=== PATIENT | male | born 1995 | race Caucasian/White ===

== ENCOUNTER 2021-02-24 09:12 | Outpatient (REF) | payer OTHER, SELFPAY ==
[2021-02-24 10:30] LABS: MANUAL DIFF FLAG NO
[2021-02-24 10:35] LABS: Basophils Percent Auto 0.4 % (0-2); Eosinophils Absolute Auto 0.1 X10*3/uL (0.0-0.4); Eosinophils Percent Auto 2.6 % (0-4); Hematocrit 41.4 % (42-52); Imm Gran Abs Auto 0.01 X10*3/uL (0.00-0.03); Imm Gran Pct Auto 0.2 % (0.0-0.4); Lymphocytes Absolute Auto 1.5 X10*3/uL (1.2-4.9); Lymphocytes Percent Auto 30.4 % (20-40); Mean Corpuscular HGB Conc 33.8 g/dl (31.0-36.0); Mean Corpuscular Hemoglobin 30.8 pg (27.0-33.0); Mean Corpuscular Volume 91.2 fL (80-98); Mean Platelet Volume 9.2 fL (9.4-12.4); Monocytes Absolute Auto 0.5 X10*3/uL (0.1-1.2); Monocytes Percent Auto 9.9 % (2-11); Neutrophils Absolute Auto 2.8 X10*3/uL (2.0-8.3); Neutrophils Percent Auto 56.5 % (45-73); Platelet Count 257 X10*3/uL (160-400); Red Blood Count 4.54 X10*6/uL (4.60-5.80); Red Cell Distribution Width 11.6 % (11.0-16.0); White Blood Count 4.9 X10*3/uL (4.8-10.8)
[2021-02-24 11:18] LABS: Erythrocyte Sedimentation Rate 5 MM/HR (0-15)
[2021-02-24 11:36] LABS: Alanine Aminotransferase 40 U/L (0-40); Albumin Level 4.4 g/dL (3.5-5.0); Alkaline Phosphatase 66 U/L (39-117); Anion Gap 11 (12-20); Aspartate Amino Transferase 28 U/L (5-37); Bilirubin Total 1.1 mg/dL (0.0-1.0); Blood Urea Nitrogen 13 mg/dL (9-16); Calcium 9.9 mg/dL (8.4-10.2); Carbon Dioxide 28 mmol/L (22-29); Chloride 104 mmol/L (96-108); Cholesterol 170 mg/dL; Estimated Glomerular Filt Rate > 60; Glucose Fasting 97 mg/dL (60-99); HDL Cholesterol 40 mg/dL; LDL Cholesterol Calculated 113 mg/dl; Potassium 4.3 mmol/L (3.3-5.1); Sodium 139 mmol/L (135-145); Total Protein 7.3 g/dL (6.5-8.0); Triglycerides 85 mg/dL
[2021-02-24 11:55] LABS: TSH reflex Free T4 1.04 uIU/mL (0.32-4.0)
[2021-02-24 13:06] LABS: Rheumatoid Factor < 15.0 IU/mL (<15.0)
[2021-02-26 20:37] LABS: CRP High Sensitivity 2.9 mg/L
== END 2021-02-24 09:13 | disposition home or self-care (01) ==
LOC: HO.WFDLDS 09:12
PROVIDERS: Visit Provider Family Medicine
DX: Z00.00 Encounter for general adult medical examination without abnormal findings (principal); M25.50 Pain in unspecified joint
CPT/HCPCS: 36415; 80053; 80061; 84443; 85025; 85652; 86141; 86431

== ENCOUNTER 2022-03-08 09:43 | Outpatient (REF) | payer OTHER, SELFPAY ==
[2022-03-08 11:16] LABS: MANUAL DIFF FLAG NO
[2022-03-08 11:25] LABS: Basophils Percent Auto 0.7 % (0-2); Eosinophils Absolute Auto 0.1 X10*3/uL (0.0-0.4); Eosinophils Percent Auto 1.9 % (0-4); Hematocrit 42.4 % (42.0-52.0); Hemoglobin 14.3 g/dl (14.0-18.0); Imm Gran Abs Auto 0.02 X10*3/uL (0.00-0.03); Imm Gran Pct Auto 0.3 % (0.0-0.4); Lymphocytes Absolute Auto 1.5 X10*3/uL (1.2-4.9); Lymphocytes Percent Auto 25.8 % (20-40); Mean Corpuscular HGB Conc 33.7 g/dl (31.0-36.0); Mean Corpuscular Hemoglobin 30.8 pg (27.0-33.0); Mean Corpuscular Volume 91.2 fL (80.0-98.0); Mean Platelet Volume 9.5 fL (9.4-12.4); Monocytes Absolute Auto 0.4 X10*3/uL (0.1-1.2); Monocytes Percent Auto 7.2 % (2-11); Neutrophils Absolute Auto 3.8 x10*3/uL (2.0-8.3); Neutrophils Percent Auto 64.1 % (45-73); Platelet Count 282 X10*3/uL (160-400); Red Blood Count 4.65 X10*6/uL (4.60-5.80); Red Cell Distribution Width 11.8 % (11.0-16.0); White Blood Count 5.9 X10*3/uL (4.8-10.8)
[2022-03-08 12:19] LABS: Alanine Aminotransferase 36 U/L (0-40); Albumin Level 4.4 g/dL (3.5-5.0); Alkaline Phosphatase 69 U/L (39-117); Anion Gap 13 (12-20); Aspartate Amino Transferase 22 U/L (5-37); Bilirubin Total 1.2 mg/dL (0.0-1.0); Blood Urea Nitrogen 11 mg/dL (9-16); Calcium 9.6 mg/dL (8.4-10.2); Carbon Dioxide 29 mmol/L (22-29); Chloride 103 mmol/L (96-108); Cholesterol 164 mg/dL; Estimated Glomerular Filt Rate > 60; Glucose Fasting 94 mg/dL (60-99); HDL Cholesterol 35 mg/dL; LDL Cholesterol Calculated 118 mg/dl; Potassium 4.4 mmol/L (3.3-5.1); Sodium 141 mmol/L (135-145); Total Protein 7.3 g/dL (6.5-8.0); Triglycerides 55 mg/dL
[2022-03-08 12:46] LABS: TSH reflex Free T4 0.75 uIU/mL (0.32-4.0)
== END 2022-03-08 09:44 | disposition home or self-care (01) ==
LOC: HO.WFDLDS 09:43
PROVIDERS: Visit Provider Family Medicine
DX: Z00.00 Encounter for general adult medical examination without abnormal findings (principal)
CPT/HCPCS: 36415; 80053; 80061; 84443; 85025

== ENCOUNTER 2025-05-08 15:35 | Outpatient (AMB) | payer OTHER, SELFPAY ==
--- NOTE | 2025-05-08 15:40 | A.OFFPC_ITS ---
Vital Signs 05/08/25 15:42 Height 5 ft 11 in Weight 205 lb BMI 28.6 BP 128/74 Blood Pressure Location Rt brachial Position Sitting Respiration 16 Pulse 110 H Pulse Source Pulse Oximeter Temp 98.3 F Temp Source Oral Pulse Oximetry (%) 98 Oxygen Delivery Method Room Air Intake Visit Reasons: Anxiety Intake Note: patient is scheduled to follow up for anxiety and gi issues abd cramping and stools are yellow Machine Adjuster Helper Required: No Allergies Seasonal Allergies Allergy (Verified 05/08/25 15:41) itchy eyes, headaches, congestion Medication List - Last Reconciled 05/08/25 by Danny Robles MD fexofenadine (Belle Allergy) 60 mg PO BID Tobacco use date assessed: 03/08/22 HPI Anxiety HPI Details 30 y/o male presents today with complain ts of anxiety. Also has complaints of diarrhea with almost every stool. Denies much gas. Reports abd. pain and cramping. Pt notes this also alternates with harder stools/constipation. PHQ-9 5, JONES-7 3 today. PFSH Family History (Updated 03/01/21 @ 10:08 by [facility]) Father Hypertension Mother Fibromyalgia Social History (Updated 03/01/21 @ 10:08 by [facility] [facility]) Housing: House Alcohol intake: former Patient Tobacco Use Status: Never used Tobacco e-Cigarette/Vaping Use: Never Used Second Hand Smoke Exposure: No service: No Current occupational status: employed Current occupational exposures/hazards: No Cognitive needs: No Hearing needs: No Vision needs: No Questionnaire PHQ-9 Over the last 2 weeks, how often have you been bothered by any of the following problems? 1. Little interest or pleasure in doing things: several days 2. Feeling down, depressed, or hopeless: several days 3. Trouble falling or staying asleep, or sleeping too much: several days 4. Feeling tired or having little energy: several days 5. Poor appetite or overeating: several days 6. Feeling bad about yourself - or that you are a failure or have let yourself or your family down: not at all 7. Trouble concentrating on things, such as reading the newspaper or watching television: not at all 8. Moving or speaking so slowly that other people could have noticed. Or the opposite - being so fidgety or restless that you have been moving around a lot more than usual: not at all 9. Thoughts that you would be better off or of hurting yourself in some way: not at all Total score: 5 Depression Screening Interpretation: Negative Depression Screening Done: Yes 62882 - PHQ-9 Billing: Yes Source: Developed by Drs. Anjum Marshall, Katelynn Martinez, Jone Hsieh and colleagues, with an educational popeye from [employer]. Thrive Questionnaire Date Thrive assessed: 05/02/25 I am a: Patient What is your living situation today?: I have a steady place to live Within the past 12 months, did the food you bought not last and you didn't have the money to get more?: Never true Within the past 12 months, did you worry whether your food would run out before you got money to buy more?: Never true Do you have trouble paying for medicines?: No Do you have trouble getting transportation to medical appointments?: No Do you have trouble paying your heating and electricity bill?: No Do you have trouble taking care of your child, family member or friend?: No Do you have trouble with day-to-day activities such as bathing, preparing meals, shopping, managing finances, etc.?: No Are you currently unemployed and looking for a job?: No Are you interested in more education?: No Please select the resources that you would like help with: None Currently or been in a relationship where the following occur: No concerns reported THRIVE Score: 0 AUDIT C Alcohol Use Questionnaire (AUDIT-C) 1. How often do you have a drink containing alcohol?: Never 2. How many drinks containing alcohol do you have on a typical day when you are drinking?: 1 or 2 3. How often do you have six or more drinks on one occasion?: Never Total Score: 0 JONES-7 AMB Questionnaire JONES-7 Date JONES - 7 assessed: 05/08/25 Feeling nervous, anxious, or on edge: 1 = Several days Not being able to stop or control worryin = Not at all Worrying too much about different things: 0 = Not at all Trouble relaxin = Several days Being so restless that it is hard to sit still: 0 = Not at all Becoming easily annoyed or irritable: 1 = Several days Feeling afraid as if something awful might happen: 0 = Not at all Total JONES-7 score (0-4 normal; 5-9 mild; 10-14 moderate; 15-21 severe): 3 Source: Developed by Drs. Anjum Marshall, Katelynn Martinez, Jone Hsieh and colleagues, with an educational popeye from [employer]. JONES-7 Assessment Billing JONES-7 Assessment Tool: JONES-7 Assessment 16683 Review of Systems Const Denies chills, Denies fatigue, Denies fever(s), Denies headache(s) and Denies weakness ENT Denies dizziness and Denies headache(s) Card Denies dyspnea Resp Denies cough, Denies dyspnea, Denies wheezing and Denies other (shortness of breath) Musc Denies numbness and Denies tingling Neuro Denies dizziness, Denies headache(s), Denies numbness, Denies tingling and Denies weakness Psych Denies anxiety and Denies depression Endo Denies fatigue Aller/Immun Denies wheezing Physical exam (Primary Care) Vital Signs: Last Vital Signs Temp 98.3 F 05/08/25 15:42 Pulse 110 H 05/08/25 15:42 Resp 16 05/08/25 15:42 BP 128/74 05/08/25 15:42 Pulse Ox 98 05/08/25 15:42 Oxygen Delivery Method Room Air 05/08/25 15:42 BMI result Body Mass Index 28.6 Tobacco/Smoking Status: Tobacco use Status Tobacco use date assessed 03/08/22 05/08/25 15:44 Patient Tobacco Use Status Never used Tobacco 05/08/25 15:44 e-Cigarette/Vaping Use Never Used 05/08/25 15:44 PHQ-9: PHQ-9 Score PHQ-9: Total score 5 05/08/25 15:44 Depression Screening Interpretation: Negative Thrive Assessment: Date of Thrive Assessment Date Thrive assessed 05/02/25 05/08/25 15:44 Currently or been in a relationship where the following occur: No concerns reported Const General: well developed; No acute distress Nutritional Appearance: well nourished Orientation/consciousness: patient oriented x3 HENMT Head: Yes normocephalic and Yes atraumatic Eyes General: appearance normal, both eyes and all related structures Pupils: Equal, round and reactive pupils present EOM: EOMs intact bilaterally Resp Effort & Inspection: normal respiratory effort Neuro General: patient oriented x3 and gait normal Cranial nerves: Yes Equal, round and reactive pupils present Psych Affect: normal affect Coding Level of Care Code Est Pt Level 4 (88972) Diagnoses IBS (irritable bowel syndrome) K58.9 Anxiety F41.9 Additional Codes JONES-7 Assessment Billing - JONES-7 Assessment Tool: JONES-7 Assessment 84521 ([id number]) PHQ-9 - 41764 - PHQ-9 Billing: Yes ([id number]) Assessment & Plan Assessment & Plan (1) IBS (irritable bowel syndrome): Code(s): K58.9 - Irritable bowel syndrome, unspecified Category: Medical Plan: Increase Hydration Soluble fiber tab Check stool studies Patient has had ongoing symptoms since previous visits in 2021 in 2020. will refer to GI (2) Anxiety: Code(s): F41.9 - Anxiety disorder, unspecified Category: Medical Plan: Ongoing anxiety He has tried a therapist in the past but would prefer to try medication Start sertraline 50 mg daily Orders: Orders Comprehensive [place]. Panel Fast Today Z00.00 - Encounter for general adult medical examination without abnormal findings Complete Blood Count Auto Diff Today Z00.00 - Encounter for general adult medical examination without abnormal findings Lipid Panel Today Z00.00 - Encounter for general adult medical examination without abnormal findings TSH reflex Free T4 Today Z00.00 - Encounter for general adult medical examination without abnormal findings GI Panel Today R19.5 - Other fecal abnormalities Microalbumin, Random (w Creat) Today I10 - Essential (primary) hypertension UA CC w/rflx Micro + Cult Today Z00.00 - Encounter for general adult medical examination without abnormal findings
[2025-05-08 15:42] VITALS: BP 128/74; PULSE 110; RESP 16; TEMP 36.8; O2SAT 98; BMI 28.6
--- OUTSIDE RECORDS SUMMARY | 2025-05-08 19:13 | XMS_ITS | Clinical Summary ---
Author Organization [facility] Address [address] [place] [phone] Phone Care Team Providers Care Scale Shooter Name Role Phone Unavailable Primary Care Provider Unavailabl e Immunizations Immunization Administration Dates Next Due DTaP 05/08/2001, 8,1996,08/19,1996 Hep B, ped/adol 02/28/1997,1996,1996 Hib (PRP-T) 07/25/1997,199 7,1996,06/27 IPV 05/08/2001,199 7,1996,06/27 Influenza, injectable, quadrivalent 05/30/2012,1 08/08/2010,06/04/2010 Influenza, injectable, quadr ivalent, preservative free 05/31/2013 MMR 04/25/2000,05/02/1997 Meningococcal Conj (Menactra) MCV4P 05/30/2012,1 Tdap 05/15/2007 Varicella 05/15/2007,12/25/1997 Family History Relation Name Status Comments Father Alive healthy, hyperl ipidemia age: 50 Father's Sister Alive One sister d ied of ovarian ca Maternal Grandfather 73 stok [address] Maternal Grandmother 49 [employer] Cancer Mother Alive healthy age: 49 Paternal Grandfather Alive DM, hyp ertension, hyperlipidemia age: 76 Paternal Grandmother Alive hyperte nsion age: 71 Social History Tobacco Use Types Packs/Day Years Used Date Smoking Tobacco: Never Assessed Sex and Gender Information Value Date Recorded Sex Assigned at Not on file Legal Sex Male 6:23 PM EDT Gender Identity Not on file Sexual Orientation Not on file Last Filed Vital Signs Vital Sign Reading Time Taken Comments Blood Pressure 118/70 05/31/2013 12:00 AM EST Pulse - - Temperature 37 C (98.6 F) 04/02/2012 12:00 AM EDT Respiratory Rate - - Oxygen Saturation - - Inhaled Oxygen Concentration - - Weight 80.3 kg (177 lb) 05/31/2013 12:00 AM EST Height 174 cm (5' 8.5 ) 05/31/2013 12:00 AM EST Body Mass Index 26.52 05/31/2013 12:00 AM EST Plan of Treatment Health Maintenance Due Date Last Done Comments DTaP,Tdap,and Td Vaccines (7 - Td or Tdap) 05/15/2017 05/15/2007, 05/08/2001, 07/25/1997, Additional history exists HPV Vaccines (1 - 3-dose SCDM series) 2023 Influenza Vaccines (#1) 2025 05/31/20 13, 05/30/2012, 06/08/2011, Additional history exists COVID-19 Vaccine ( season) 2025 Hepatitis B Vaccines Completed 02/28/1997, 1996, 1996 HIB Vaccines Completed 07/25/1997, 02/1997, 1996, Additional history exists MMR Vaccines Completed 04/25/2000, 05/02/1997 IPV Vaccines Completed 05/08/2001, 02/1997, 1996, Additional history exists Varicella Vaccines Completed 05/15/2007, 12/25/1997 Meningococcal Vaccine Completed 05/30/2012, 007 Hepatitis A Vaccines Aged Out No long er eligible based on patient's age to complete this topic Men B Vaccine Aged Out No longer elig ible based on patient's age to complete this topic Pneumococcal Vaccine Aged Out No long er eligible based on patient's age to complete this topic
--- OUTSIDE RECORDS SUMMARY | 2025-05-08 19:13 | XMS_ITS | Encounter Summary ---
Author Organization [facility] Address [address] [place] [phone] Phone Care Team Providers Care Hot Dip Plating Supervisor Name Role Phone Unavailable Primary Care Provider Unavailabl e Encounter Details Date Type Department Care Team (Late st Contact Info) Description 12/03/2017 Con[facility]counter [facility] [address] [address] Social History Tobacco Use Types Packs/Day Years Used Date Smoking Tobacco: Never Assessed Sex and Gender Information Value Date Recorded Sex Assigned at Not on file Legal Sex Male 6:23 PM EDT Gender Identity Not on file Sexual Orientation Not on file documented as of this encounter Plan of Treatment Not on file documented as of this encounter Visit Diagnoses Not on filedocumented in this encounter
== END 2025-05-08 16:07 | disposition home or self-care (01) ==
LOC: HO.HMCFM 15:36
PROVIDERS: PCP Family Medicine; Visit Provider Family Medicine
DX: K58.9 Irritable bowel syndrome, unspecified (principal); F41.9 Anxiety disorder, unspecified

== ENCOUNTER → 2025-05-08 15:35 | Outpatient (BNVA) | payer OTHER, SELFPAY | PROVIDERS: PCP Family Medicine; Visit Provider Family Medicine | DX: K58.0 Irritable bowel syndrome with diarrhea (principal); F41.9 Anxiety disorder, unspecified; I10 Essential (primary) hypertension | CPT/HCPCS: 96127; 99212 ==

== ENCOUNTER 2025-05-16 10:56 | Outpatient (REF) | payer OTHER, SELFPAY ==
--- OUTSIDE RECORDS SUMMARY | 2025-05-16 12:27 | XMS_ITS | Encounter Summary ---
Author Organization [facility] Address [address] [place] [phone] Phone Care Team Providers Care Vp Respiratory Name Role Phone Unavailable Primary Care Provider Unavailabl e Encounter Details Date Type Department Care Team (Late st Contact Info) Description 12/03/2017 Con[facility]counter [facility] [address] [address] Social History Tobacco Use Types Packs/Day Years [...]
--- OUTSIDE RECORDS SUMMARY | 2025-05-16 12:27 | XMS_ITS | Clinical Summary ---
Author Organization [facility] Address [address] [place] [phone] Phone Care Team Providers Care Quarter Supervisor Name Role Phone Unavailable Primary Care [...] Grandfather 73 stok e Maternal Grandmother 49 [place] n Cancer Mother Alive healthy age: 49 [...]
[2025-05-16 14:06] LABS: MANUAL DIFF FLAG NO
[2025-05-16 14:09] LABS: Appearance Urine Clear; Glucose Urine UA Negative (Negative); PH 7.5 (5.0-9.0); Specific Gravity - Urine 1.010 (1.005-1.025)
[2025-05-16 14:18] LABS: Hematocrit 43.1 % (42.0-52.0); Hemoglobin 14.2 g/dl (14.0-18.0); Imm Gran Abs Auto 0.02 X10*3/uL (0.00-0.03); Imm Gran Pct Auto 0.4 % (0.0-0.4); Lymphocytes Absolute Auto 1.3 X10*3/uL (1.2-4.9); Mean Corpuscular HGB Conc 32.9 g/dl (31.0-36.0); Mean Corpuscular Hemoglobin 30.1 pg (27.0-33.0); Mean Corpuscular Volume 91.3 fL (80.0-98.0); NRBC Abs Auto 0.000 X10*3/uL (0.0-0.012); NRBC Pct Auto 0.0 /100WBC (0.0-0.2); Platelet Count 292 X10*3/uL (160-400); Red Blood Count 4.72 X10*6/uL (4.60-5.80); White Blood Count 5.2 X10*3/uL (4.8-10.8)
[2025-05-16 14:30] LABS: Alanine Aminotransferase 34 U/L (0-40); Albumin Level 4.7 g/dL (3.5-5.0); Alkaline Phosphatase 60 U/L (39-117); Anion Gap 10 (12-20); Aspartate Amino Transferase 31 U/L (5-37); Blood Urea Nitrogen 9 mg/dL (9-16); Calcium 9.8 mg/dL (8.4-10.2); Carbon Dioxide 29 mmol/L (22-29); Chloride 103 mmol/L (96-108); Cholesterol 125 mg/dL (<200); Estimated Glomerular Filt Rate > 60; HDL Cholesterol 37 mg/dL (>40); Potassium 3.7 mmol/L (3.3-5.1); Sodium 138 mmol/L (135-145); Total Protein 7.4 g/dL (6.5-8.0); Triglycerides 62 mg/dL (<150)
[2025-05-16 14:33] LABS: Microalbum/Creatinine Ratio Ur 6.8 ug/mg cr (<30)
== END 2025-05-16 10:57 | disposition home or self-care (01) ==
LOC: HO.WFDLDS 10:56
PROVIDERS: Visit Provider Family Medicine
DX: Z00.00 Encounter for general adult medical examination without abnormal findings (principal); I10 Essential (primary) hypertension
CPT/HCPCS: 36415; 80053; 80061; 81003; 82043; 82570; 84443; 85025

== ENCOUNTER 2025-06-10 15:07 | Outpatient (AMB) | payer OTHER, SELFPAY ==
--- NOTE | 2025-06-10 15:10 | MHC.PC.OV ---
Vital Signs 06/10/25 15:13 Height 51 ft 1 in Weight 209 lb 8 oz BMI 0.4 BP 140/83 H Blood Pressure Location Lt brachial Position Sitting Respiration 13 Pulse 96 Pulse Source Pulse Oximeter Temp 97.2 F Temp Source Temporal Artery Scan Pulse Oximetry (%) 99 Oxygen Delivery Method Room Air Intake Visit Reasons: f/u anxiety Intake Note: Follow up on anxiety and review labs Supervisor Laboratory Required: No Allergies Seasonal Allergies Allergy (Verified 06/10/25 15:10) itchy eyes, headaches, congestion Medication List - Last Reconciled 06/10/25 by Danny Robles MD calcium polycarbophil (FiberCon) 625 mg PO DAILY 30 days fexofenadine (Belle Allergy) 60 mg PO BID sertraline 50 mg PO DAILY 90 days Tobacco use date assessed: 06/10/25 Dental Screening Dental Screen Date: 06/10/25 Did you have a dental visit in the last 12 months?: Yes Did you have a dental problem in the last 6 months where you did not have access to dental care?: No Was dental information given to patient?: Patient has dentist HPI f/u anxiety HPI Details 30 y/o male presents to f/u anxiety. PHQ-9/JONES-7 negative today. He is on sertraline 50mg daily. Hx of IBS. Pt notes FiberCon has been working well for him. Labs drawn 05/16/25. Reviewed labs with pt. Triglycerides 62. TC 125. LDL 76. HDL low at 37. PFSH Family History (Updated 03/01/21 @ 10:08 by [employer]) Father Hypertension Mother Fibromyalgia Social History (Updated 03/01/21 @ 10:08 by [employer]) Housing: House Alcohol intake: former Patient Tobacco Use Status: Never used Tobacco e-Cigarette/Vaping Use: Never Used Second Hand Smoke Exposure: No service: No Current occupational status: employed Current occupational exposures/hazards: No Cognitive needs: No Hearing needs: No Vision needs: No Questionnaire PHQ-9 Over the last 2 weeks, how often have you been bothered by any of the following problems? 1. Little interest or pleasure in doing things: not at all 2. Feeling down, depressed, or hopeless: not at all 3. Trouble falling or staying asleep, or sleeping too much: not at all 4. Feeling tired or having little energy: not at all 5. Poor appetite or overeating: not at all 6. Feeling bad about yourself - or that you are a failure or have let yourself or your family down: not at all 7. Trouble concentrating on things, such as reading the newspaper or watching television: not at all 8. Moving or speaking so slowly that other people could have noticed. Or the opposite - being so fidgety or restless that you have been moving around a lot more than usual: not at all 9. Thoughts that you would be better off or of hurting yourself in some way: not at all Total score: 0 Depression Screening Interpretation: Negative Depression Screening Done: Yes 40227 - PHQ-9 Billing: Yes Source: Developed by Drs. Anjum Marshall, Katelynn Martinez, Jone Hsieh and colleagues, with an educational popeye from [employer]. Thrive Questionnaire Date Thrive assessed: 06/10/25 I am a: Patient What is your living situation today?: I have a steady place to live Within the past 12 months, did the food you bought not last and you didn't have the money to get more?: Never true Within the past 12 months, did you worry whether your food would run out before you got money to buy more?: Never true Do you have trouble paying for medicines?: No Do you have trouble getting transportation to medical appointments?: No Do you have trouble paying your heating and electricity bill?: No Do you have trouble taking care of your child, family member or friend?: No Do you have trouble with day-to-day activities such as bathing, preparing meals, shopping, managing finances, etc.?: No Are you currently unemployed and looking for a job?: No Are you interested in more education?: No Please select the resources that you would like help with: None Currently or been in a relationship where the following occur: No concerns reported THRIVE Score: 0 JONES-7 AMB Questionnaire JONES-7 Date JONES - 7 assessed: 06/10/25 Feeling nervous, anxious, or on edge: 0 = Not at all Not being able to stop or control worryin = Not at all Worrying too much about different things: 0 = Not at all Trouble relaxin = Not at all Being so restless that it is hard to sit still: 0 = Not at all Becoming easily annoyed or irritable: 0 = Not at all Feeling afraid as if something awful might happen: 0 = Not at all Total JONES-7 score (0-4 normal; 5-9 mild; 10-14 moderate; 15-21 severe): 0 Source: Developed by Drs. Anjum Marshall, Katelynn Martinez, Jone Hsieh and colleagues, with an educational popeye from [employer]. JONES-7 Assessment Billing JONES-7 Assessment Tool: JONES-7 Assessment 73638 Review of Systems Const Denies chills, Denies fatigue, Denies fever(s), Denies headache(s) and Denies weakness ENT Denies dizziness and Denies headache(s) Card Denies dyspnea Resp Denies cough, Denies dyspnea, Denies wheezing and Denies other (shortness of breath) Musc Denies numbness and Denies tingling Neuro Denies dizziness, Denies headache(s), Denies numbness, Denies tingling and Denies weakness Psych Denies anxiety and Denies depression Endo Denies fatigue Aller/Immun Denies wheezing Physical exam (Primary Care) Vital Signs: Last Vital Signs Temp 97.2 F 06/10/25 15:13 Pulse 96 06/10/25 15:13 Resp 13 06/10/25 15:13 BP 140/83 H 06/10/25 15:13 Pulse Ox 99 06/10/25 15:13 Oxygen Delivery Method Room Air 06/10/25 15:13 BMI result Body Mass Index 0.4 Tobacco/Smoking Status: Tobacco use Status Tobacco use date assessed 06/10/25 06/10/25 15:15 Patient Tobacco Use Status Never used Tobacco 06/10/25 15:15 e-Cigarette/Vaping Use Never Used 06/10/25 15:15 PHQ-9: PHQ-9 Score PHQ-9: Total score 0 06/10/25 15:42 Depression Screening Interpretation: Negative Thrive Assessment: Date of Thrive Assessment Date Thrive assessed 06/10/25 06/10/25 15:15 Currently or been in a relationship where the following occur: No concerns reported Const General: well developed; No acute distress Nutritional Appearance: well nourished Orientation/consciousness: patient oriented x3 HENMT Head: Yes normocephalic and Yes atraumatic Eyes General: appearance normal, both eyes and all related structures Pupils: Equal, round and reactive pupils present EOM: EOMs intact bilaterally Resp Effort & Inspection: normal respiratory effort Neuro General: patient oriented x3 and gait normal Cranial nerves: Yes Equal, round and reactive pupils present Psych Affect: normal affect Coding Level of Care Code Est Pt Level 3 (75083) Diagnoses Anxiety F41.9 IBS (irritable bowel syndrome) K58.9 Low HDL (under 40) E78.6 Additional Codes JONES-7 Assessment Billing - JONES-7 Assessment Tool: JONES-7 Assessment 52632 ([id number]) PHQ-9 - 34993 - PHQ-9 Billing: Yes ([id number]) Assessment & Plan Assessment & Plan (1) Anxiety: Code(s): F41.9 - Anxiety disorder, unspecified Category: Medical Plan: Significant improvements on sertraline 50 mg daily. He will increase this to 75 mg daily. He can resume 50 mg daily if he has any problems with it. Encouraged exercise (2) IBS (irritable bowel syndrome): Code(s): K58.9 - Irritable bowel syndrome, unspecified Category: Medical Plan: Patient is hydrating better and has tried soluble fiber supplement. He notes that symptoms have improved but not fully resolved He is referred to Gastroenterology (3) Low HDL (under 40): Code(s): E78.6 - Lipoprotein deficiency Category: Medical Plan Mildly low HDL and encouraged exercise Orders: Referrals Gastroenterology Referral K21.9 - Gastro-esophageal reflux disease without esophagitis, K58.9 - Irritable bowel syndrome, unspecified, R10.9 - Unspecified abdominal pain, R19.5 - Other fecal abnormalities, R19.7 - Diarrhea, unspecified Medications: Changed From sertraline 50 mg PO DAILY 90 days 90 tabs 1RF To sertraline 75 mg (1.5 x 50 mg) PO DAILY 135 tabs 2RF 90 days
[2025-06-10 15:13] VITALS: BP 140/83; PULSE 96; RESP 13; TEMP 36.2; O2SAT 99
--- OUTSIDE RECORDS SUMMARY | 2025-06-10 18:48 | XMS_ITS | Encounter Summary ---
Author Organization [facility] Address [address] [place] [phone] Phone Care Team Providers Care Warehouse Administrative Assistant Name Role Phone Unavailable Primary Care Provider Unavailabl e Encounter Details Date Type Department Care Team (Late st Contact Info) Description 12/03/2017 Con[facility]counter [facility] [address] [address] Social History Tobacco Use Types Packs/Day Years [...]
--- OUTSIDE RECORDS SUMMARY | 2025-06-10 18:48 | XMS_ITS | Clinical Summary ---
Author Organization [facility] Address [address] [place] [phone] Phone Care Team Providers Care Sales Manager Name Role Phone Unavailable Primary Care Provider [...] Grandfather 73 stok e Maternal Grandmother 49 [place] n Cancer Mother Alive healthy age: 49 [...]
== END 2025-06-10 16:00 | disposition home or self-care (01) ==
LOC: HO.HMCFM 15:08
PROVIDERS: PCP Family Medicine; Visit Provider Family Medicine
DX: F41.9 Anxiety disorder, unspecified (principal); K58.9 Irritable bowel syndrome, unspecified; E78.6 Lipoprotein deficiency

== ENCOUNTER → 2025-06-10 15:07 | Outpatient (BNVA) | payer OTHER, SELFPAY | PROVIDERS: PCP Family Medicine; Visit Provider Family Medicine | DX: E78.6 Lipoprotein deficiency (principal); F41.9 Anxiety disorder, unspecified; K58.9 Irritable bowel syndrome, unspecified; R10.9 Unspecified abdominal pain; R19.5 Other fecal abnormalities; R19.7 Diarrhea, unspecified | CPT/HCPCS: 96127; 99212 ==